=== PATIENT | male | born 1985 | race Hispanic/Latino ===

== ENCOUNTER 2017-08-20 14:58 | Inpatient (IN) | payer OTHER ==
[2017-08-20] MEDS ORDERED: Sodium Chloride 0.9% 1,000 ML IV STA ×2 (15:33→17:14)
[2017-08-20] MEDS ORDERED: DiphenhydrAMINE 50 mg/ml Inj IVP STA (15:33)
[2017-08-20] MEDS ORDERED: Promethazine 25 MG in Sodium Chloride 0.9% 50 ML IVPB ONE (15:45)
[2017-08-20] MEDS: Pantoprazole 40 MG in Sodium Chloride 0.9% 100 ML IVPB SCH (15:45)
[2017-08-20] MEDS ORDERED: DiphenhydrAMINE 50 mg/ml Inj ONE (15:51)
[2017-08-20 16:33] LABS: INR 1.8 (0.9-1.2); PARTIAL THROMBOPLASTIN TIME 29.8 Seconds (25.6-37.1); PROTHROMBIN TIME 19.7 Seconds (9.8-13.1)
[2017-08-20 16:37] LABS: ALB/GLOB RATIO 0.8 (1.0-2.1); ALBUMIN 2.6 g/dL (3.5-5.0); ALT/SGPT 45 U/L (21-72); AST/SGOT 45 U/L (17-59); BLOOD UREA NITROGEN 47 mg/dl (9-20); CALCIUM 8.2 mg/dL (8.4-10.2); GFR AFRICAN-AMERICAN > 60; GFR NON-AFRICAN AMERICAN > 60
[2017-08-20] MEDS ORDERED: Potassium Chloride 20 mEq 100 ML IVPB ONE (16:42)
--- NOTE | 2017-08-20 16:42 | RAD ---
HISTORY: Syncope. COMPARISON: No prior. FINDINGS: LUNGS: No active pulmonary disease. PLEURA: No significant pleural effusion identified, no pneumothorax apparent. CARDIOVASCULAR: No radiographic findings to suggest acute or significant cardiovascular disease. OSSEOUS STRUCTURES: No significant abnormalities. VISUALIZED UPPER ABDOMEN: Normal. OTHER FINDINGS: None. IMPRESSION: No active disease.
[2017-08-20 17:04] LABS: BASO # 0.1 K/uL (0.0-0.2); BASO % 0.2 % (0.0-2.0); LYMPH # 3.4 K/uL (1.0-4.3); LYMPH % 15.9 % (20.0-40.0); MEAN CELL VOLUME 97.3 fl (80.0-94.0); MEAN CORPUSCULAR HEMOGLOBIN 31.2 pg (27.0-31.0); MEAN CORPUSCULAR HGB CONC 32.1 g/dL (33.0-37.0); MEAN PLATELET VOLUME 10.7 fl (7.2-11.7); MONO # 1.7 K/uL (0.0-0.8); MONO % 7.9 % (0.0-10.0); NEUT # 16.3 K/uL (1.8-7.0); NEUT % 75.9 % (50.0-75.0); RBC 1.66 Mil/uL (4.40-5.90); RED CELL DISTRIBUTION WIDTH 14.6 % (11.5-14.5); WHITE BLOOD COUNT 21.6 K/uL (4.8-10.8)
[2017-08-20 17:05] LABS: HEMOGLOBIN 5.2 g/dL (12.0-18.0)
[2017-08-20 17:08] LABS: EOS % 0.1 % (0.0-4.0)
[2017-08-20] MEDS ORDERED: Sodium Chloride 0.9% 2,000 ML IV STA (17:16)
[2017-08-20] MEDS ORDERED: Magnesium Sulfate 2 gm/50 ml 2 GM/50 ML BAG IVPB ONE (17:26)
[2017-08-20] MEDS ORDERED: Potassium Chloride 20 mEq 100 ML ONE (17:28)
[2017-08-20] MEDS ORDERED: Phytonadione 10 mg/ml Inj (Adult) IVPB SCH (17:30)
--- NOTE | 2017-08-20 17:37 | ED PDOC ---
HPI: Abdomen Time Seen by Provider: 08/20/17 15:13 Chief Complaint (Nursing): Syncope Chief Complaint (Provider): Vomiting History Per: Patient History/Exam Limitations: no limitations Onset/Duration Of Symptoms: Days (x1) Current Symptoms Are (Timing): Still Present Quality Of Discomfort: Cramping Associated Symptoms: Nausea, Vomiting (bloody with coffee grounds), Other ( malaise, fatigue, lightheadedness, sweats). denies: Chest Pain Additional Complaint(s): Josue Shrestha is a 31 year old male, with a past medical history of HTN, who presents to the emergency department complaining of intractable vomiting and black colored loose stools onset since last night. Patient states vomiting is bloody with some coffee grounds. Patient reports episodes of black stools once in a while for the last couple of months but not as severe. Patient also reports a crampy abdominal pain for the last x12 hours with multiple fainting episodes at home, malaise, fatigue, lightheadedness, sweats and continued nausea. Patient recently moved here from [place] x3 months ago and reports increase alcohol intake since moving here due to work. He denies any chest pain or other medical complaints. PMD: In [place] Past Medical History Reviewed: Historical Data, Nursing Documentation, Vital Signs Vital Signs: Last Vital Signs Temp 97.7 F 08/23/17 12:00 Pulse 84 08/23/17 14:00 Resp 18 08/23/17 14:00 BP 117/80 08/23/17 14:00 Pulse Ox 95 08/23/17 12:00 - Medical History PMH: HTN - Surgical History Surgical History: No Surg Hx - Family History Family History: States: Hypertension - Social History Current smoker - smoking cessation education provided: Yes Alcohol: Social Drugs: Denies - Home Medications Home Medications: Ambulatory Orders Medication Instructions Recorded Atenolol [Tenormin] 1 tab PO DAILY 08/20/17 Chlorthalidone [Hygroton] 1 tab PO DAILY 08/20/17 Propranolol HCl [Propranolol HCl 1 tab PO PRN PRN 08/20/17 ER] - Allergies Allergies/Adverse Reactions: Allergies Allergy/AdvReac Type Severity Reaction Status Date / Time Sulfa (Sulfonamide Allergy Mild RASH Verified 08/22/17 12:57 Antibiotics) Review of Systems ROS Statement: Except As Marked, All Systems Reviewed And Found Negative Constitutional: Positive for: Sweats, Malaise, Other (fatigue) Cardiovascular: Positive for: Light Headedness. Negative for: Chest Pain Gastrointestinal: Positive for: Vomiting (bloody with some coffee grounds), Abdominal Pain (crampy), Melena Neurological: Positive for: Other (syncope) Physical Exam - Reviewed Nursing Documentation Reviewed: Yes Vital Signs Reviewed: Yes - Physical Exam Appears: Positive for: Uncomfortable, In Acute Distress Head Exam: Positive for: ATRAUMATIC, NORMOCEPHALIC Skin: Positive for: Diaphoresis, Pallor Eye Exam: Positive for: Normal appearance, EOMI, PERRL ENT: Positive for: Other (dry mucous membranes). Negative for: Tonsillar Exudate Neck: Positive for: Painless ROM Cardiovascular/Chest: Positive for: Tachycardia (regular rhythm). Negative for : Murmur Respiratory: Positive for: Normal Breath Sounds. Negative for: Accessory Muscle Use, Respiratory Distress Gastrointestinal/Abdominal: Positive for: Soft. Negative for: Tenderness, Mass , Distended, Guarding, Rebound Back: Positive for: Normal Inspection. Negative for: Decreased ROM Rectal: Positive for: Black Stool, Other (immunohematologist: Jazmín) Extremity: Positive for: Normal ROM (upper and lower extremities). Negative for : Deformity, Swelling Lymphatic: Negative for: Adenopathy Neurologic/Psych: Positive for: Alert, Oriented. Negative for: Motor/Sensory Deficits - Laboratory Results Result Diagrams: 08/23/17 12:02 08/23/17 04:30 - ECG ECG Rhythm: Positive for: Sinus Tachycardia Interpretation Of ECG: No ST elevations or depressions. Prolonged QTc 521 Rate: 113 O2 Sat by Pulse Oximetry: 100 (RA) Pulse Ox Interpretation: Normal - Progress Condition: Improving,but remains with symptoms - Critical Care Total Time (In Min): 45 Documented Critical Care: Time excludes all time spent performint seperately billable procedures Medical Decision Making Medical Decision Making: Initial Impression: GI bleed and syncope, severe anemia Initial Plan: --Packed Cells Leukoreduced --Type and screen --EKG --Alcohol Serum --CMP --Drug screen, urine --Lact acid, plasma --Lipase --Magnesium --Phosphorus --Troponin I --Urine dipstick --CBC w/ differential --PTT --PT --Chest portable [RAD] --Benadryl 25 mg IVP --Potassium Chloride 100 ml IVPB --Sodium Chloride 1,000 ml IV 1,000 mls/hr --Sodium Chloride 2,000 ml IV 2,000 mls/hr --Protonix Inj 40 mg NS 100 ml IVPB --Phenergan Inj 25 mg IVPB --Blood culture --Occult blood, stool --100% O2 --Reevaluation While in ER pt had 2 near syncopal episodes: pt became diaphoretic, confused, attempting to pull lines and get out of bed. Last about 1 minute and then can be redirected. After redirection pt oriented x 3. 1:1 ordered. Prolonged time to dispo due to lab. Labs demonstrated hgb 5.2 Also with INR 1.8 BUN 47 Findings c/w GI bleed and coagulopathy Mg and potassium low, c/w intractable vomiting/dehydration 5p ANURADHA Gonzáles Decontamination Technician. Advises more aggressive hydration ANURADHA Barroso MEdical service. also advises Vit K ANURADHA Mendoza. Advises total of 3u prbcs. ANURADHA pt findings and plan of care. Risk/benefits of transfusion discussed and pt signed consent. Disposition - Clinical Impression Clinical Impression: GI bleed, Anemia Counseled Patient/Family Regarding: Studies Performed, Diagnosis - Disposition Disposition Time: 17:00 Condition: CRITICAL - Pt Status Changed To: Hospital Disposition Of: Inpatient - Admit Certification Admit to Inpatient:: After my assessment, the patient will require hospitalization for at least two midnights. This is because of the severity of symptoms shown, intensity of services needed, and/or the medical risk in this patient being treated as an outpatient. - POA Present On Arrival: None
[2017-08-20] MEDS ORDERED: Phytonadione 10 MG in Sodium Chloride 0.9% 50 ML IV ONE (17:45)
--- NOTE | 2017-08-20 18:01 | CP.PCM.CON ---
History of Present Illness - History of Present Illness History of Present Illness: 31yo M. PMHx HTN. p/w several episodes of syncope, hematemesis, and black tarry stools. In ED found to be severely anemic. States he has been drinking alcohol more than usual. Review of Systems - Review of Systems All systems: reviewed and no additional remarkable complaints except - Gastrointestinal Gastrointestinal: Abdominal Pain, Cramping Past Patient History - Past Social History Smoking Status: Heavy Smoker > 10 Cigarettes Daily - CARDIAC Hx Hypertension: Yes - PSYCHIATRIC Hx Substance Use: No - ANESTHESIA Hx Anesthesia: No Meds Allergies/Adverse Reactions: Allergies Allergy/AdvReac Type Severity Reaction Status Date / Time No Known Allergies Allergy Verified 08/20/17 15:04 - Medications Medications: Current Medications Pantoprazole Sodium 40 mg/ (Sodium Chloride) 100 mls @ 20 mls/hr IVPB Q5H ESTEBAN PRN Reason: 8 MG/HR Last Admin: 08/20/17 15:45 Dose: 20 mls/hr Potassium Chloride (Potassium Chloride 20 Meq/100 Ml) 100 mls @ 50 mls/hr IVPB ONCE ONE Stop: 08/20/17 18:41 Last Admin: 08/20/17 17:05 Dose: 50 mls/hr Sodium Chloride (Sodium Chloride 0.9%) 1,000 mls @ 1,000 mls/hr IV .Q1H STA Stop: 08/20/17 18:13 Sodium Chloride (Sodium Chloride 0.9%) 2,000 mls @ 2,000 mls/hr IV .Q1H STA Stop: 08/20/17 18:15 Magnesium Sulfate (Magnesium Sulfate 2 Gm/50 Ml Water) 2 gm in 50 mls @ 50 mls/ hr IVPB ONCE ONE PRN Reason: 2 GM/HR Stop: 08/20/17 18:25 Phytonadione 10 mg/ Sodium (Chloride) 51 mls @ 102 mls/hr IV ONCE ONE Stop: 08/20/17 18:14 Physical Exam - Head Exam Head Exam: ATRAUMATIC, NORMAL INSPECTION, NORMOCEPHALIC - Eye Exam Eye Exam: EOMI, Normal appearance, PERRL - ENT Exam ENT Exam: Mucous Membranes Moist, Normal Exam - Respiratory Exam Respiratory Exam: Clear to Auscultation Bilateral, NORMAL BREATHING PATTERN - Cardiovascular Exam Cardiovascular Exam: Tachycardia - GI/Abdominal Exam GI & Abdominal Exam: Tenderness (mild) - Extremities Exam Extremities exam: Positive for: normal inspection - Neurological Exam Neurological exam: Alert, CN II-XII Intact, Oriented x3, Reflexes Normal - Psychiatric Exam Psychiatric exam: Normal Affect, Normal Mood Results - Vital Signs Recent Vital Signs: Last Vital Signs Temp 98.4 F 08/20/17 15:26 Pulse 122 H 08/20/17 17:12 Resp 16 08/20/17 17:12 BP 138/85 08/20/17 17:12 Pulse Ox 100 08/20/17 17:37 - Labs Result Diagrams: 08/20/17 16:00 08/20/17 15:40 Labs: Laboratory Results - last 24 hr 08/20/17 08/20/17 08/20/17 15:14 15:40 15:40 WBC RBC Hgb Hct MCV MCH MCHC RDW Plt Count MPV Neut % (Auto) Lymph % (Auto) [place] % (Auto) Eos % (Auto) Baso % (Auto) Neut # (Auto) Lymph # (Auto) [place] # (Auto) Eos # (Auto) Baso # (Auto) PT 19.7 H INR 1.8 H APTT 29.8 Sodium 138 Potassium 3.0 L Chloride 99 Carbon Dioxide 22 Anion Gap 20 BUN 47 H Creatinine 0.7 L Est GFR ( Amer) > 60 Est GFR (Non-Af Amer) > 60 POC Glucose (mg/dL) 250 H Random Glucose 209 H Calcium 8.2 L Phosphorus 3.6 Magnesium 1.5 L Total Bilirubin 0.9 AST 45 ALT 45 Alkaline Phosphatase 60 Troponin I < 0.0120 Total Protein 5.8 L Albumin 2.6 L Globulin 3.2 Albumin/Globulin Ratio 0.8 L Alcohol, Quantitative < 10 Blood Type Blood Type Confirm Antibody Screen Crossmatch BBK History Checked 08/20/17 08/20/17 08/20/17 15:40 16:00 17:00 WBC 21.6 H RBC 1.66 L Hgb 5.2 L* Hct 16.1 L MCV 97.3 H MCH 31.2 H MCHC 32.1 L RDW 14.6 H Plt Count 201 MPV 10.7 Neut % (Auto) 75.9 H Lymph % (Auto) 15.9 L [place] % (Auto) 7.9 Eos % (Auto) 0.1 Baso % (Auto) 0.2 Neut # (Auto) 16.3 H Lymph # (Auto) 3.4 [place] # (Auto) 1.7 H Eos # (Auto) 0.0 Baso # (Auto) 0.1 PT INR APTT Sodium Potassium Chloride Carbon Dioxide Anion Gap BUN Creatinine Est GFR ( Amer) Est GFR (Non-Af Amer) POC Glucose (mg/dL) Random Glucose Calcium Phosphorus Magnesium Total Bilirubin AST ALT Alkaline Phosphatase Troponin I Total Protein Albumin Globulin Albumin/Globulin Ratio Alcohol, Quantitative Blood Type B POSITIVE Blood Type Confirm B POSITIVE Antibody Screen Negative Crossmatch See Detail BBK History Checked No verified bt Assessment & Plan (1) GI bleed Assessment and Plan: 31yo M. PMHx HTN. p/w several episodes of syncope, hematemesis, and black tarry stools. p/w suspected upper GI bleed. Neuro: alert and oriented x 3. Will need to monitor for ETOH withdrawal symptoms, level of usage unknown. Pulm: no acute issues, breathing spontaneously on room air. CV: relatively hypotensive. Hem: blood loss anemia, transfusing 2 units PRBC's Renal: no acute issues, will monitor Endo: no acute issues GI: NPO. Patient will most likely need and EGD, r/u ulcer or alcoholic gastritis. GI consulted ID: no acute issues DVT proph - SCD's, no a/c with current bleed GI proph - protonix gtt Code status - full code Critical Care Time spent 35 minutes Multi-disciplinary rounds were performed with house staff, nursing, speech therapy, respiratory therapy, pharmacy and nutrition with integrated input from the primary team/attending and other consulting services. The documented time is cumulative and includes review of patient data/exams/labs/chart review and examination of the patient on rounds and throughout the day; time is exclusive of any procedures or teaching time. Status: Acute
--- NOTE | 2017-08-20 18:47 | CP.PCM.HP ---
Past Patient History - Past Social History Alcohol: Social Drugs: Denies - CARDIAC Hx Hypertension: Yes - PSYCHIATRIC Hx Substance Use: No - ANESTHESIA Hx Anesthesia: No Meds Allergies/Adverse Reactions: Allergies Allergy/AdvReac Type Severity Reaction Status Date / Time No Known Allergies Allergy Verified 08/20/17 15:04 Results - Vital Signs Recent Vital Signs: Last Vital Signs Temp 98.0 F 08/20/17 18:15 Pulse 113 H 08/20/17 18:45 Resp 16 08/20/17 18:15 BP 123/69 08/20/17 18:15 Pulse Ox 100 08/20/17 18:45 - Labs Result Diagrams: 08/20/17 16:00 08/20/17 15:40 Labs: Laboratory Results - last 24 hr 08/20/17 08/20/17 08/20/17 15:14 15:40 15:40 WBC RBC Hgb Hct MCV MCH MCHC RDW Plt Count MPV Neut % (Auto) Lymph % (Auto) [place] % (Auto) Eos % (Auto) Baso % (Auto) Neut # (Auto) Lymph # (Auto) [place] # (Auto) Eos # (Auto) Baso # (Auto) PT 19.7 H INR 1.8 H APTT 29.8 Sodium 138 Potassium 3.0 L Chloride 99 Carbon Dioxide 22 Anion Gap 20 BUN 47 H Creatinine 0.7 L Est GFR ( Amer) > 60 Est GFR (Non-Af Amer) > 60 POC Glucose (mg/dL) 250 H Random Glucose 209 H Calcium 8.2 L Phosphorus 3.6 Magnesium 1.5 L Total Bilirubin 0.9 AST 45 ALT 45 Alkaline Phosphatase 60 Troponin I < 0.0120 Total Protein 5.8 L Albumin 2.6 L Globulin 3.2 Albumin/Globulin Ratio 0.8 L Alcohol, Quantitative < 10 Blood Type Blood Type Confirm Antibody Screen Crossmatch BBK History Checked 08/20/17 08/20/17 08/20/17 15:40 16:00 17:00 WBC 21.6 H RBC 1.66 L Hgb 5.2 L* Hct 16.1 L MCV 97.3 H MCH 31.2 H MCHC 32.1 L RDW 14.6 H Plt Count 201 MPV 10.7 Neut % (Auto) 75.9 H Lymph % (Auto) 15.9 L [place] % (Auto) 7.9 Eos % (Auto) 0.1 Baso % (Auto) 0.2 Neut # (Auto) 16.3 H Lymph # (Auto) 3.4 [place] # (Auto) 1.7 H Eos # (Auto) 0.0 Baso # (Auto) 0.1 PT INR APTT Sodium Potassium Chloride Carbon Dioxide Anion Gap BUN Creatinine Est GFR ( Amer) Est GFR (Non-Af Amer) POC Glucose (mg/dL) Random Glucose Calcium Phosphorus Magnesium Total Bilirubin AST ALT Alkaline Phosphatase Troponin I Total Protein Albumin Globulin Albumin/Globulin Ratio Alcohol, Quantitative Blood Type B POSITIVE Blood Type Confirm B POSITIVE Antibody Screen Negative Crossmatch See Detail BBK History Checked No verified bt
[2017-08-20] MEDS ORDERED: Acetaminophen 650mg/20.3ml solution UD PO ONE (23:49)
[2017-08-21] MEDS ORDERED: Multivitamin (MVI) 10 ML, Thiamine 100 MG, Folic Acid 1 MG in Sodium Chloride 0.9% 1,00... IV ONE ×2 (03:18→03:23)
[2017-08-21 07:13] LABS: HEMOGLOBIN 6.9 g/dL (12.0-18.0); MEAN CORPUSCULAR HEMOGLOBIN 30.9 pg (27.0-31.0); MEAN CORPUSCULAR HGB CONC 33.6 g/dL (33.0-37.0); RBC 2.23 Mil/uL (4.40-5.90); RED CELL DISTRIBUTION WIDTH 16.9 % (11.5-14.5); WHITE BLOOD COUNT 17.3 K/uL (4.8-10.8)
[2017-08-21 07:27] LABS: INR 1.5 (0.9-1.2); PARTIAL THROMBOPLASTIN TIME 30.1 Seconds (25.6-37.1); PROTHROMBIN TIME 16.8 Seconds (9.8-13.1)
[2017-08-21 07:33] LABS: BLOOD UREA NITROGEN 38 mg/dl (9-20); CALCIUM 7.7 mg/dL (8.4-10.2); GFR AFRICAN-AMERICAN > 60; GFR NON-AFRICAN AMERICAN > 60
--- NOTE | 2017-08-21 08:02 | CP.PCM.CON ---
History of Present Illness - History of Present Illness History of Present Illness: PGY5 GI Fellow Consult Note Patient is a 31yo male with PMHx significant for HTN who presented to the ED with complaint of nausea, vomiting and dark stool for one day. Currently, the patient is sedated and unable to remain awake long enough to provide any history. He has one to one nursing as he became very agitated overnight and became a harm to himself. Per the EMR, patient complained of sudden onset nausea , vomiting, dark stool and cramping abdominal pain one day prior to admission. On further questioning it seemed patient had been having intermittent episodes of melena for several weeks and coffee ground emesis just prior to arrival. In the days leading up to admission, patient had worsening fatigue, dizziness and episodes of syncope. On admission, blood work revealed severe anemia (HGB 5.2) with coagulopathy (INR 1.8). He admitted to heavy alcohol use since moving to [place] from [place] 3 months ago. He was admitted to ICU where he has received 3 units of PRBCs and medication for alcohol withdrawal. 12 system ROS limited given altered mentation PMHx: HTN PSHx: Unable to assess at this time FHx: Unable to assess at this time Social: Unable to assess at this time - known heavy EtOH use Endo: Unable to assess at this time Past Patient History - Past Medical History & Family History Past Medical History?: Yes - Past Social History Smoking Status: Current Some Days Smoker - CARDIAC Hx Hypertension: Yes - PULMONARY Hx Respiratory Disorders: No - NEUROLOGICAL Hx Neurological Disorder: No - HEENT Hx HEENT Problems: No - RENAL Hx Chronic Kidney Disease: No - ENDOCRINE/METABOLIC Hx Endocrine Disorders: No - HEMATOLOGICAL/ONCOLOGICAL Hx Blood Disorders: No Hx AIDS: No Hx Human Immunodeficiency Virus (HIV): No - INTEGUMENTARY Hx Dermatological Problems: No - MUSCULOSKELETAL/RHEUMATOLOGICAL Hx Musculoskeletal Disorders: No Hx Falls: Yes (pt fell in the er) - GENITOURINARY/GYNECOLOGICAL Hx Genitourinary Disorders: No - PSYCHIATRIC Hx Psychophysiologic Disorder: No Hx Substance Use: No - ANESTHESIA Hx Anesthesia: No Meds Allergies/Adverse Reactions: Allergies Allergy/AdvReac Type Severity Reaction Status Date / Time No Known Allergies Allergy Verified 08/20/17 15:04 - Medications Medications: Current Medications Pantoprazole Sodium 40 mg/ (Sodium Chloride) 100 mls @ 20 mls/hr IVPB Q5H REPLACED BY [facility] PRN Reason: 8 MG/HR Last Admin: 08/20/17 15:45 Dose: 20 mls/hr Multivitamins/Vitamin C 10 ml/Thiamine HCl 100 mg/ Folic Acid 1 mg/ Sodium Chloride 1,011.2 mls @ 100 mls/hr IV .Q10H7M ONE Stop: 08/21/17 13:24 Last Admin: 08/21/17 04:13 Dose: 100 mls/hr Lorazepam (Ativan) 1 mg IVP Q6 ESTEBAN Last Admin: 08/21/17 03:31 Dose: 1 mg Lorazepam (Ativan) 2 mg IVP Q3 PRN PRN Reason: Agitation Physical Exam - Constitutional Appears: Agitated, Confused - Eye Exam Eye Exam: PERRL - ENT Exam ENT Exam: Mucous Membranes Dry - Respiratory Exam Respiratory Exam: Clear to Auscultation Bilateral. absent: Rales, Rhonchi, Wheezes - Cardiovascular Exam Cardiovascular Exam: Tachycardia, REGULAR RHYTHM, +S1, +S2 - GI/Abdominal Exam GI & Abdominal Exam: Normal Bowel Sounds, Soft. absent: Distended, Firm, Guarding, Organomegaly, Rigid, Tenderness - Extremities Exam Extremities exam: Positive for: normal inspection. Negative for: pedal edema - Neurological Exam Neurological exam: Altered - Psychiatric Exam Psychiatric exam: Agitated, Anxious - Skin Skin Exam: Dry, Warm Additional comments: spider angiomas on chest wall Results - Vital Signs Recent Vital Signs: Last Vital Signs Temp 98.6 F 08/21/17 01:08 Pulse 116 H 08/21/17 01:00 Resp 19 08/21/17 01:00 BP 116/89 08/21/17 01:00 Pulse Ox 100 08/21/17 01:00 - Labs Result Diagrams: 08/21/17 06:20 08/21/17 06:20 Labs: Laboratory Results - last 24 hr 08/20/17 08/20/17 08/20/17 15:14 15:40 15:40 WBC RBC Hgb Hct MCV MCH MCHC RDW Plt Count MPV Neut % (Auto) Lymph % (Auto) [place] % (Auto) Eos % (Auto) Baso % (Auto) Neut # (Auto) Lymph # (Auto) [place] # (Auto) Eos # (Auto) Baso # (Auto) PT 19.7 H INR 1.8 H APTT 29.8 Sodium 138 Potassium 3.0 L Chloride 99 Carbon Dioxide 22 Anion Gap 20 BUN 47 H Creatinine 0.7 L Est GFR ( Amer) > 60 Est GFR (Non-Af Amer) > 60 POC Glucose (mg/dL) 250 H Random Glucose 209 H Calcium 8.2 L Phosphorus 3.6 Magnesium 1.5 L Total Bilirubin 0.9 AST 45 ALT 45 Alkaline Phosphatase 60 Troponin I < 0.0120 Total Protein 5.8 L Albumin 2.6 L Globulin 3.2 Albumin/Globulin Ratio 0.8 L Alcohol, Quantitative < 10 Blood Type Blood Type Confirm Antibody Screen Crossmatch BBK History Checked 08/20/17 08/20/17 08/20/17 15:40 16:00 17:00 WBC 21.6 H RBC 1.66 L Hgb 5.2 L* Hct 16.1 L MCV 97.3 H MCH 31.2 H MCHC 32.1 L RDW 14.6 H Plt Count 201 MPV 10.7 Neut % (Auto) 75.9 H Lymph % (Auto) 15.9 L [place] % (Auto) 7.9 Eos % (Auto) 0.1 Baso % (Auto) 0.2 Neut # (Auto) 16.3 H Lymph # (Auto) 3.4 [place] # (Auto) 1.7 H Eos # (Auto) 0.0 Baso # (Auto) 0.1 PT INR APTT Sodium Potassium Chloride Carbon Dioxide Anion Gap BUN Creatinine Est GFR ( Amer) Est GFR (Non-Af Amer) POC Glucose (mg/dL) Random Glucose Calcium Phosphorus Magnesium Total Bilirubin AST ALT Alkaline Phosphatase Troponin I Total Protein Albumin Globulin Albumin/Globulin Ratio Alcohol, Quantitative Blood Type B POSITIVE Blood Type Confirm B POSITIVE Antibody Screen Negative Crossmatch See Detail BBK History Checked No verified bt 08/21/17 08/21/17 08/21/17 06:20 06:20 06:20 WBC 17.3 H RBC 2.23 L Hgb 6.9 L Hct 20.5 L MCV 92.0 D MCH 30.9 MCHC 33.6 RDW 16.9 H Plt Count 138 MPV Neut % (Auto) Lymph % (Auto) [place] % (Auto) Eos % (Auto) Baso % (Auto) Neut # (Auto) Lymph # (Auto) [place] # (Auto) Eos # (Auto) Baso # (Auto) PT 16.8 H INR 1.5 H APTT 30.1 Sodium 142 Potassium 2.8 L Chloride 105 Carbon Dioxide 24 Anion Gap 16 BUN 38 H Creatinine 0.7 L Est GFR ( Amer) > 60 Est GFR (Non-Af Amer) > 60 POC Glucose (mg/dL) Random Glucose 139 H Calcium 7.7 L Phosphorus Magnesium 1.9 Total Bilirubin AST ALT Alkaline Phosphatase Troponin I Total Protein Albumin Globulin Albumin/Globulin Ratio Alcohol, Quantitative Blood Type Blood Type Confirm Antibody Screen Crossmatch BBK History Checked Assessment & Plan - Assessment and Plan (Free Text) Assessment: Patient is a 31yo male with PMHx significant for HTN who presented to the ED with complaint of nausea, vomiting and dark stool for one day. -Acute blood loss anemia -EtOH abuse/withdrawal -Coagulopathy Plan: -Suspect chronic liver disease given clinical picture, spider angiomas/ abdominal protuberance/coagulopathy/hypoalbuminemia -Check U/S abdomen - R/O cirrhosis -Check hepatitis panel -S/P 3 units PRBCs; monitor CBC Q8H - transfusion support as needed -Protonix gtt -NPO -Plan for EGD tomorrow -EtOH withdrawal protocol -1:1 nursing assistance - Date & Time Date: 08/21/17 Time: 07:00
[2017-08-21] MEDS ORDERED: Potassium Chloride 20 mEq ER Tab PO ONE (08:48)
[2017-08-21] MEDS: Pantoprazole 40 MG in Sodium Chloride 0.9% 100 ML IVPB SCH ×3 (08:59→20:52)
[2017-08-21] MEDS ORDERED: Multivitamin (MVI) 10 ML, Folic Acid 1 MG, Thiamine 100 MG in Dextrose 5%/0.45% NS 1,00... IV ONE (08:59)
[2017-08-21] MEDS: Potassium Chloride 20 mEq 100 ML IVPB SCH ×4 (11:51→20:46)
--- NOTE | 2017-08-21 12:40 | CP.CCUPN ---
CCU Subjective - Physician Review Events Since Last Encounter (Free Text): 08/21/17 11:59 sedated on Ativan. CCU Objective - Vital Signs / Intake & Output Vital Signs (Last 4 hours): Vital Signs Temp Pulse Resp BP Pulse Ox 08/21/17 08:00 98.0 F 128 H 10 L 157/114 H 100 Intake and Output (Last 8hrs): Intake & Output 08/20/17 08/21/17 08/21/17 22:59 06:59 14:59 Intake Total 450 1500 Output Total 450 1500 Balance 0 0 Weight 235 lb Intake: IV 300 900 Intake, Piggyback 50 Oral 100 Blood Product 600 Output: Urine 450 1500 Urine, Voided 450 1500 - Physical Exam Head: Positive for: Atraumatic, Normocephalic Pupils: Positive for: PERRL Extroacular Muscles: Positive for: EOMI Conjunctiva: Positive for: Normal Mouth: Positive for: Moist Mucous Membranes Respiratory/Chest: Positive for: Clear to Auscultation, Good Air Exchange Cardiovascular: Positive for: Regular Rate and Rhythm Abdomen: Positive for: Normal Bowel Sounds. Negative for: Tenderness, Distention Psychiatric: Positive for: Other (sedated) - Medications Active Medications: Active Medications Generic Name Dose Route Start Last Admin Trade Name Freq PRN Reason Stop Dose Admin Pantoprazole Sodium 40 mg/ 100 mls @ 20 mls/hr 08/20/17 15:45 08/21/17 08:59 Sodium Chloride IVPB 20 mls/hr Q5H ESTEBAN Administration 8 MG/HR Multivitamins/Vitamin C 10 ml/ 1,011.2 mls @ 100 mls/hr 08/21/17 03:23 04:13 Thiamine HCl 100 mg/ Folic IV 08/21/17 13:24 100 mls/hr Acid 1 mg/ Sodium Chloride .Q10H7M ONE Administration Multivitamins/Vitamin C 10 ml/ 1,011.2 mls @ 100 mls/hr 08/21/17 08:59 Folic Acid 1 mg/ Thiamine HCl IV 08/21/17 19:05 100 mg/ Dextrose/Sodium .Q10H7M ONE Chloride Potassium Chloride 100 mls @ 50 mls/hr 08/21/17 12:00 08/21/17 11:51 Potassium Chloride 20 Meq/100 Ml IVPB 08/21/17 15:59 50 mls/hr Q2 ESTEBAN Administration Lorazepam 1 mg 08/21/17 08:59 08/21/17 11:47 Ativan IVP 1 mg Q6H PRN Administration Symptoms of alcohol withdrawl - Patient Studies Lab Studies: Lab Studies 08/21/17 08/21/17 08/21/17 Range/Units 06:20 06:20 06:20 WBC 17.3 H (4.8-10.8) K/uL RBC 2.23 L (4.40-5.90) Mil/uL Hgb 6.9 L (12.0-18.0) g/dL Hct 20.5 L (35.0-51.0) % MCV 92.0 D (80.0-94.0) fl MCH 30.9 (27.0-31.0) pg MCHC 33.6 (33.0-37.0) g/dL RDW 16.9 H (11.5-14.5) % Plt Count 138 (130-400) K/uL MPV (7.2-11.7) fl Neut % (Auto) (50.0-75.0) % Lymph % (Auto) (20.0-40.0) % [place] % (Auto) (0.0-10.0) % Eos % (Auto) (0.0-4.0) % Baso % (Auto) (0.0-2.0) % Neut # (Auto) (1.8-7.0) K/uL Lymph # (Auto) (1.0-4.3) K/uL [place] # (Auto) (0.0-0.8) K/uL Eos # (Auto) (0.0-0.7) K/uL Baso # (Auto) (0.0-0.2) K/uL PT 16.8 H (9.8-13.1) Seconds INR 1.5 H (0.9-1.2) APTT 30.1 (25.6-37.1) Seconds Sodium 142 (132-148) mmol/l Potassium 2.8 L (3.6-5.0) MMOL/L Chloride 105 (98-107) mmol/L Carbon Dioxide 24 (22-30) mmol/L Anion Gap 16 (10-20) BUN 38 H (9-20) mg/dl Creatinine 0.7 L (0.8-1.5) mg/dl Est GFR ( Amer) > 60 Est GFR (Non-Af Amer) > 60 POC Glucose (mg/dL) (65-110) mg/dL Random Glucose 139 H (75-110) mg/dL Calcium 7.7 L (8.4-10.2) mg/dL Phosphorus (2.5-4.5) mg/dl Magnesium 1.9 (1.6-2.3) MG/DL Total Bilirubin (0.2-1.3) mg/dl AST (17-59) U/L ALT (21-72) U/L Alkaline Phosphatase (38-126) U/L Troponin I (0.00-0.120) ng/mL Total Protein (6.3-8.2) G/DL Albumin (3.5-5.0) g/dL Globulin (2.2-3.9) gm/dL Albumin/Globulin Ratio (1.0-2.1) Alcohol, Quantitative (0-10) mg/dl Blood Type Blood Type Confirm Antibody Screen Crossmatch BBK History Checked 08/20/17 08/20/17 08/20/17 Range/Units 17:00 16:00 15:40 WBC 21.6 H (4.8-10.8) K/uL RBC 1.66 L (4.40-5.90) Mil/uL Hgb 5.2 L* (12.0-18.0) g/dL Hct 16.1 L (35.0-51.0) % MCV 97.3 H (80.0-94.0) fl MCH 31.2 H (27.0-31.0) pg MCHC 32.1 L (33.0-37.0) g/dL RDW 14.6 H (11.5-14.5) % Plt Count 201 (130-400) K/uL MPV 10.7 (7.2-11.7) fl Neut % (Auto) 75.9 H (50.0-75.0) % Lymph % (Auto) 15.9 L (20.0-40.0) % [place] % (Auto) 7.9 (0.0-10.0) % Eos % (Auto) 0.1 (0.0-4.0) % Baso % (Auto) 0.2 (0.0-2.0) % Neut # (Auto) 16.3 H (1.8-7.0) K/uL Lymph # (Auto) 3.4 (1.0-4.3) K/uL [place] # (Auto) 1.7 H (0.0-0.8) K/uL Eos # (Auto) 0.0 (0.0-0.7) K/uL Baso # (Auto) 0.1 (0.0-0.2) K/uL PT (9.8-13.1) Seconds INR (0.9-1.2) APTT (25.6-37.1) Seconds Sodium (132-148) mmol/l Potassium (3.6-5.0) MMOL/L Chloride (98-107) mmol/L Carbon Dioxide (22-30) mmol/L Anion Gap (10-20) BUN (9-20) mg/dl Creatinine (0.8-1.5) mg/dl Est GFR ( Amer) Est GFR (Non-Af Amer) POC Glucose (mg/dL) (65-110) mg/dL Random Glucose (75-110) mg/dL Calcium (8.4-10.2) mg/dL Phosphorus (2.5-4.5) mg/dl Magnesium (1.6-2.3) MG/DL Total Bilirubin (0.2-1.3) mg/dl AST (17-59) U/L ALT (21-72) U/L Alkaline Phosphatase (38-126) U/L Troponin I (0.00-0.120) ng/mL Total Protein (6.3-8.2) G/DL Albumin (3.5-5.0) g/dL Globulin (2.2-3.9) gm/dL Albumin/Globulin Ratio (1.0-2.1) Alcohol, Quantitative (0-10) mg/dl Blood Type B POSITIVE Blood Type Confirm B POSITIVE Antibody Screen Negative Crossmatch See Detail BBK History Checked No verified bt 08/20/17 08/20/17 08/20/17 Range/Units 15:40 15:40 15:14 WBC (4.8-10.8) K/uL RBC (4.40-5.90) Mil/uL Hgb (12.0-18.0) g/dL Hct (35.0-51.0) % MCV (80.0-94.0) fl MCH (27.0-31.0) pg MCHC (33.0-37.0) g/dL RDW (11.5-14.5) % Plt Count (130-400) K/uL MPV (7.2-11.7) fl Neut % (Auto) (50.0-75.0) % Lymph % (Auto) (20.0-40.0) % [place] % (Auto) (0.0-10.0) % Eos % (Auto) (0.0-4.0) % Baso % (Auto) (0.0-2.0) % Neut # (Auto) (1.8-7.0) K/uL Lymph # (Auto) (1.0-4.3) K/uL [place] # (Auto) (0.0-0.8) K/uL Eos # (Auto) (0.0-0.7) K/uL Baso # (Auto) (0.0-0.2) K/uL PT 19.7 H (9.8-13.1) Seconds INR 1.8 H (0.9-1.2) APTT 29.8 (25.6-37.1) Seconds Sodium 138 (132-148) mmol/l Potassium 3.0 L (3.6-5.0) MMOL/L Chloride 99 (98-107) mmol/L Carbon Dioxide 22 (22-30) mmol/L Anion Gap 20 (10-20) BUN 47 H (9-20) mg/dl Creatinine 0.7 L (0.8-1.5) mg/dl Est GFR ( Amer) > 60 Est GFR (Non-Af Amer) > 60 POC Glucose (mg/dL) 250 H (65-110) mg/dL Random Glucose 209 H (75-110) mg/dL Calcium 8.2 L (8.4-10.2) mg/dL Phosphorus 3.6 (2.5-4.5) mg/dl Magnesium 1.5 L (1.6-2.3) MG/DL Total Bilirubin 0.9 (0.2-1.3) mg/dl AST 45 (17-59) U/L ALT 45 (21-72) U/L Alkaline Phosphatase 60 (38-126) U/L Troponin I < 0.0120 (0.00-0.120) ng/mL Total Protein 5.8 L (6.3-8.2) G/DL Albumin 2.6 L (3.5-5.0) g/dL Globulin 3.2 (2.2-3.9) gm/dL Albumin/Globulin Ratio 0.8 L (1.0-2.1) Alcohol, Quantitative < 10 (0-10) mg/dl Blood Type Blood Type Confirm Antibody Screen Crossmatch BBK History Checked Laboratory Results - last 24 hr 08/20/17 08/20/17 08/20/17 15:14 15:40 15:40 WBC RBC Hgb Hct MCV MCH MCHC RDW Plt Count MPV Neut % (Auto) Lymph % (Auto) [place] % (Auto) Eos % (Auto) Baso % (Auto) Neut # (Auto) Lymph # (Auto) [place] # (Auto) Eos # (Auto) Baso # (Auto) PT 19.7 H INR 1.8 H APTT 29.8 Sodium 138 Potassium 3.0 L Chloride 99 Carbon Dioxide 22 Anion Gap 20 BUN 47 H Creatinine 0.7 L Est GFR ( Amer) > 60 Est GFR (Non-Af Amer) > 60 POC Glucose (mg/dL) 250 H Random Glucose 209 H Calcium 8.2 L Phosphorus 3.6 Magnesium 1.5 L Total Bilirubin 0.9 AST 45 ALT 45 Alkaline Phosphatase 60 Troponin I < 0.0120 Total Protein 5.8 L Albumin 2.6 L Globulin 3.2 Albumin/Globulin Ratio 0.8 L Alcohol, Quantitative < 10 Blood Type Blood Type Confirm Antibody Screen Crossmatch BBK History Checked 08/20/17 08/20/17 08/20/17 15:40 16:00 17:00 WBC 21.6 H RBC 1.66 L Hgb 5.2 L* Hct 16.1 L MCV 97.3 H MCH 31.2 H MCHC 32.1 L RDW 14.6 H Plt Count 201 MPV 10.7 Neut % (Auto) 75.9 H Lymph % (Auto) 15.9 L [place] % (Auto) 7.9 Eos % (Auto) 0.1 Baso % (Auto) 0.2 Neut # (Auto) 16.3 H Lymph # (Auto) 3.4 [place] # (Auto) 1.7 H Eos # (Auto) 0.0 Baso # (Auto) 0.1 PT INR APTT Sodium Potassium Chloride Carbon Dioxide Anion Gap BUN Creatinine Est GFR ( Amer) Est GFR (Non-Af Amer) POC Glucose (mg/dL) Random Glucose Calcium Phosphorus Magnesium Total Bilirubin AST ALT Alkaline Phosphatase Troponin I Total Protein Albumin Globulin Albumin/Globulin Ratio Alcohol, Quantitative Blood Type B POSITIVE Blood Type Confirm B POSITIVE Antibody Screen Negative Crossmatch See Detail BBK History Checked No verified bt 08/21/17 08/21/17 08/21/17 06:20 06:20 06:20 WBC 17.3 H RBC 2.23 L Hgb 6.9 L Hct 20.5 L MCV 92.0 D MCH 30.9 MCHC 33.6 RDW 16.9 H Plt Count 138 MPV Neut % (Auto) Lymph % (Auto) [place] % (Auto) Eos % (Auto) Baso % (Auto) Neut # (Auto) Lymph # (Auto) [place] # (Auto) Eos # (Auto) Baso # (Auto) PT 16.8 H INR 1.5 H APTT 30.1 Sodium 142 Potassium 2.8 L Chloride 105 Carbon Dioxide 24 Anion Gap 16 BUN 38 H Creatinine 0.7 L Est GFR ( Amer) > 60 Est GFR (Non-Af Amer) > 60 POC Glucose (mg/dL) Random Glucose 139 H Calcium 7.7 L Phosphorus Magnesium 1.9 Total Bilirubin AST ALT Alkaline Phosphatase Troponin I Total Protein Albumin Globulin Albumin/Globulin Ratio Alcohol, Quantitative Blood Type Blood Type Confirm Antibody Screen Crossmatch BBK History Checked EKG/Cardiology Studies: Cardiology / EKG Studies 08/20/17 15:31 ELECTROCARDIOGRAM Stat Comment: Mode Of Transportation: Reason For Exam: syncope Fingerstick Blood Sugar Results: 250 Review of Systems - Review of Systems Systems not reviewed;Unavailable: Other (sedated) Critical Care Progress Note - Nutrition Nutrition: Nutrition Category Date Time Status NPO Diet [DIET] Diets 08/21/17 Lunch Ordered Assessment/Plan (1) GI bleed Assessment and plan: 31yo M. PMHx HTN. p/w several episodes of syncope, hematemesis, and black tarry stools. p/w suspected upper GI bleed. Neuro: alert and oriented x 3. Started showing withdrawal symptoms overnight, now on CIWA protocol with Ativan IV prn q4h. Pulm: no acute issues, breathing spontaneously on room air. CV: blood pressure has stabilized. Hem: blood loss anemia, transfusing 2 more units today with poor rise in h/h. most likely still having internal slow bleed. Renal: no acute issues, will monitor. banana bag@100 with alternating NS@100. Endo: no acute issues GI: NPO. r/o ulcer or bleeding alcoholic gastritis. GI consulted - will perform EGD tomorrow. ID: no acute issues DVT proph - SCD's, no a/c with current bleed GI proph - protonix gtt Code status - full code Critical Care Time 35 minutes. Multi-disciplinary rounds were performed with house staff, nursing, speech therapy, respiratory therapy, pharmacy and nutrition with integrated input from the primary team/attending and other consulting services. The documented time is cumulative and includes review of patient data/exams/labs/chart review and examination of the patient on rounds and throughout the day; time is exclusive of any procedures or teaching time. Current Visit: Yes Status: Acute
--- NOTE | 2017-08-21 12:47 | US ---
HISTORY: eval liver parenchyma, suspect cirrhosis COMPARISON: None. TECHNIQUE: Sonographic evaluation of the abdomen. FINDINGS: LIVER: Measures 21.7 cm. Variable echo characteristics of the liver. Nodular contour to the liver. Hepato pedal blood flow was documented. . No mass. No intrahepatic bile duct dilatation. GALLBLADDER: No gallstones. Gallbladder wall edema, trace pericholecystic fluid. Negative sonographic Heredia's sign COMMON BILE DUCT: Measures 5.5 mm. No stones. No dilatation. PANCREAS: Unremarkable as visualized. No mass. No ductal dilatation. RIGHT KIDNEY: Measures 5.9 x 13.5cm. Normal echogenicity. No calculus, mass, or hydronephrosis. LEFT KIDNEY: Measures 5.7 x 14.5cm. Normal echogenicity. No calculus, mass, or hydronephrosis. SPLEEN: Splenomegaly. Orthogonal measurements 4.4 x 5.2 x 16.8 cm. AORTA: No aneurysmal dilatation. IVC: Unremarkable. OTHER FINDINGS: None. IMPRESSION: Cirrhotic appearing liver. Hepatomegaly without focal abnormality. Splenomegaly. Gallbladder wall edema/ trace pericholecystic fluid.
[2017-08-21] MEDS ORDERED: Sodium Chloride 0.9% 1,000 ML IV SCH (13:00)
[2017-08-21 16:54] LABS: HEPATITIS B SURFACE AG Negative (NEGATIVE)
[2017-08-21 17:00] LABS: HEPATITIS A IGM NEGATIVE (NEGATIVE); HEPATITIS B CORE AB NEGATIVE (NEGATIVE)
[2017-08-21 17:12] LABS: HEPATITIS C ANTIBODY NEGATIVE (NEGATIVE)
[2017-08-21 20:50] LABS: HEMOGLOBIN 6.9 g/dL (12.0-18.0); MEAN CELL VOLUME 91.8 fl (80.0-94.0); MEAN CORPUSCULAR HEMOGLOBIN 30.9 pg (27.0-31.0); MEAN CORPUSCULAR HGB CONC 33.7 g/dL (33.0-37.0); RBC 2.23 Mil/uL (4.40-5.90); RED CELL DISTRIBUTION WIDTH 17.6 % (11.5-14.5); WHITE BLOOD COUNT 13.2 K/uL (4.8-10.8)
[2017-08-21 21:01] LABS: ALB/GLOB RATIO 0.8 (1.0-2.1); ALBUMIN 2.6 g/dL (3.5-5.0); ALT/SGPT 53 U/L (21-72); AST/SGOT 80 U/L (17-59); BLOOD UREA NITROGEN 29 mg/dl (9-20); CALCIUM 7.6 mg/dL (8.4-10.2); GFR AFRICAN-AMERICAN > 60; GFR NON-AFRICAN AMERICAN > 60
--- NOTE | 2017-08-21 22:44 | CP.PCM.PN ---
Subjective - Date & Time of Evaluation Date of Evaluation: 08/21/17 Time of Evaluation: 16:15 Objective - Vital Signs/Intake and Output Vital Signs (last 24 hours): Temp Pulse Resp BP Pulse Ox 98.4 F 106 H 14 109/56 L 98 08/21/17 16:00 08/21/17 18:00 08/21/17 18:00 08/21/17 18:00 08/21/17 18:00 - Medications Medications: Current Medications Pantoprazole Sodium 40 mg/ (Sodium Chloride) 100 mls @ 20 mls/hr IVPB Q5H ESTEBAN PRN Reason: 8 MG/HR Last Admin: 08/21/17 20:52 Dose: 20 mls/hr Sodium Chloride (Sodium Chloride 0.9%) 1,000 mls @ 100 mls/hr IV .Q10H ESTEBAN Stop: 08/22/17 12:54 Multivitamins/Vitamin C 10 ml/Folic Acid 1 mg/ Thiamine HCl 100 mg/ Dextrose/ Sodium Chloride 1,011.2 mls @ 100 mls/hr IV .Q10H7M ONE Stop: 08/22/17 19:05 Lorazepam (Ativan) 1 mg IVP Q4H PRN PRN Reason: Symptoms of alcohol withdrawl Last Admin: 08/21/17 21:48 Dose: 1 mg - Labs Labs: 08/21/17 20:21 08/21/17 20:21 PT 16.8 Seconds (9.8-13.1) H 08/21/17 06:20 INR 1.5 (0.9-1.2) H 08/21/17 06:20 APTT 30.1 Seconds (25.6-37.1) 08/21/17 06:20
[2017-08-22] MEDS: Pantoprazole 40 MG in Sodium Chloride 0.9% 100 ML IVPB SCH (01:59)
[2017-08-22 05:42] LABS: HEMOGLOBIN 8.4 g/dL (12.0-18.0); MEAN CELL VOLUME 90.9 fl (80.0-94.0); MEAN CORPUSCULAR HEMOGLOBIN 30.8 pg (27.0-31.0); MEAN CORPUSCULAR HGB CONC 33.8 g/dL (33.0-37.0); RBC 2.72 Mil/uL (4.40-5.90); RED CELL DISTRIBUTION WIDTH 16.7 % (11.5-14.5); WHITE BLOOD COUNT 11.8 K/uL (4.8-10.8)
[2017-08-22 05:49] LABS: ALB/GLOB RATIO 0.8 (1.0-2.1); ALBUMIN 2.7 g/dL (3.5-5.0); ALT/SGPT 59 U/L (21-72); AST/SGOT 84 U/L (17-59); BLOOD UREA NITROGEN 24 mg/dl (9-20); CALCIUM 7.8 mg/dL (8.4-10.2); GFR AFRICAN-AMERICAN > 60; GFR NON-AFRICAN AMERICAN > 60
[2017-08-22 06:13] LABS: INR 1.3 (0.9-1.2)
[2017-08-22] MEDS: Potassium Chloride 20 mEq 100 ML IVPB SCH ×2 (07:24→09:34)
[2017-08-22] MEDS ORDERED: Potassium CL 10 MEQ/50 ML 50 ML IVPB SCH (08:00)
[2017-08-22] MEDS ORDERED: Multivitamin (MVI) 10 ML, Folic Acid 1 MG, Thiamine 100 MG in Dextrose 5%/0.45% NS 1,00... IV ONE (08:59)
[2017-08-22] MEDS ORDERED: Lactated Ringer's 500 ML IV ONE (13:27)
[2017-08-22] MEDS ORDERED: Propofol 10 mg/ml Inj (20 ML) ONE (14:11)
--- NOTE | 2017-08-22 17:26 | CP.CCUPN ---
CCU Subjective - Physician Review Subjective (Free Text): Under 1:1 supervision, mostly calm and cooperative with few episodes of mild agitation, trying to get OOB and requesting to be discharged. Finally calm enough to provide some contact information on family. No further active bleeding noted. Other VS and I/Os reviewed. ROS: No other pertinent negs or positives on 10+ system review. PMSFH: All other Nursing and physician documentation reviewed to date; no new pertinent info noted relevant to current medical problems. EXAM- HEENT: no icterus, no gaze preference, pupils equal and reactive NECK: No JVD, supple, carotids equal upstroke bilat/no bruits CHEST: decreased BS bases, no wheezes audible HEART: regular tachy, distant, S1S2, no rubs. ABD: soft, no distention, no tympany, no palp tenderness, BS hypoactive. EXT: No peripheral/ digital cyanosis, no calf tenderness or palpable cords, distal pulses intact and symmetrical. NEURO: no focal motor deficits, withdraws to deep pain. SKIN: no rashes, warm and dry. LABS: WBC= 11.8 HGB= 8.4 PLTs= 121K Es=638 K= 3.1 ME=982 HCO3= 23 BUN/Cr= 24/0.6 GP=807 IMPRESSION / MAJOR PROBLEMS NOW: 1. UGI Bleed, r/o ETOH Gastritis, vs Variceal hemorrhage 2. Acute blood loss anemia 2 #1 3. Delirium Tremans 2 ETOH Abuse 4. Hypokalemia PLAN: 1. EGD today noted: no active bleeding, +Variceal disease; started beta blockade by GI. 2. Hgb at satisfactory levels for now, hold on further transfusions. 3. Start Librium PO, Ativan IV PRN for breakthrough agitation. 4. Thiamine-Folate already started; K supplemented. CCU Objective - Vital Signs / Intake & Output Vital Signs (Last 4 hours): Vital Signs Temp Pulse Resp BP Pulse Ox 08/22/17 16:20 98.1 F 79 140/90 08/22/17 14:40 97.2 F L 92 H 15 125/84 100 08/22/17 14:25 97.2 F L 86 19 92/62 L 100 08/22/17 13:27 98.5 F 92 H 14 153/83 H 98 Intake and Output (Last 8hrs): Intake & Output 08/22/17 08/22/17 08/22/17 06:59 14:59 22:59 Intake Total 760 150 Output Total 650 Balance 110 150 Intake: IV 300 150 Intake, Piggyback 100 Oral 360 Output: Urine 650 Urine, Voided 650 Other: # Voids Urine, Voided 2
--- NOTE | 2017-08-22 21:44 | CP.PCM.PN ---
Subjective - Date & Time of Evaluation Date of Evaluation: 08/22/17 Time of Evaluation: 01:20 Objective - Vital Signs/Intake and Output Vital Signs (last 24 hours): Temp Pulse Resp BP Pulse Ox 98.1 F 90 15 125/75 100 08/22/17 16:20 08/22/17 20:35 08/22/17 20:00 08/22/17 20:35 08/22/17 20:00 Intake and Output: 08/22/17 08/23/17 18:59 06:59 Intake Total 150 Balance 150 - Medications Medications: Current Medications Carvedilol (Coreg) 3.125 mg PO Q12 [facility] Last Admin: 08/22/17 20:35 Dose: 3.125 mg Chlordiazepoxide (Librium) 25 mg PO Q6 [facility] Last Admin: 08/22/17 17:34 Dose: 25 mg Lactated Ringer's (Lactated Ringer's 500ml) 500 mls @ 75 mls/hr IV .Q6H40M ESTEBAN Lactulose (Enulose) 20 gm PO DAILY ESTEBAN Lorazepam (Ativan) 1 mg IVP Q4H PRN PRN Reason: Symptoms of alcohol withdrawl Last Admin: 08/22/17 20:36 Dose: 1 mg Nicotine (Nicoderm Cq) 1 patch TD DAILY ESTEBAN Pantoprazole Sodium (Protonix Ec Tab) 40 mg PO ACB ESTEBAN - Labs Labs: 08/22/17 05:00 08/22/17 05:00 PT 15.0 Seconds (9.8-13.1) H 08/22/17 05:00 INR 1.3 (0.9-1.2) H 08/22/17 05:00 APTT 30.1 Seconds (25.6-37.1) 08/21/17 06:20
[2017-08-22] MEDS: Lactated Ringer's 500 ML IV SCH (21:51)
[2017-08-23] MEDS: Lactated Ringer's 500 ML IV SCH (04:25)
[2017-08-23 06:09] LABS: BASO # 0.1 K/uL (0.0-0.2); BASO % 0.6 % (0.0-2.0); EOS # 0.4 K/uL (0.0-0.7); HEMOGLOBIN 7.8 g/dL (12.0-18.0); LYMPH # 2.6 K/uL (1.0-4.3); LYMPH % 30.7 % (20.0-40.0); MEAN CELL VOLUME 91.7 fl (80.0-94.0); MEAN CORPUSCULAR HEMOGLOBIN 31.3 pg (27.0-31.0); MEAN CORPUSCULAR HGB CONC 34.1 g/dL (33.0-37.0); MEAN PLATELET VOLUME 9.6 fl (7.2-11.7); MONO # 0.9 K/uL (0.0-0.8); MONO % 10.3 % (0.0-10.0); NEUT # 4.6 K/uL (1.8-7.0); NEUT % 53.4 % (50.0-75.0); NRBC % 0.2 % (0.0-0.0); RBC 2.48 Mil/uL (4.40-5.90); RED CELL DISTRIBUTION WIDTH 16.7 % (11.5-14.5); WHITE BLOOD COUNT 8.6 K/uL (4.8-10.8)
[2017-08-23 06:21] LABS: INR 1.3 (0.9-1.2); PROTHROMBIN TIME 14.8 Seconds (9.8-13.1)
[2017-08-23 06:32] LABS: ALB/GLOB RATIO 0.8 (1.0-2.1); ALBUMIN 2.5 g/dL (3.5-5.0); ALT/SGPT 73 U/L (21-72); AST/SGOT 111 U/L (17-59); BLOOD UREA NITROGEN 18 mg/dl (9-20); CALCIUM 7.7 mg/dL (8.4-10.2); GFR AFRICAN-AMERICAN > 60; GFR NON-AFRICAN AMERICAN > 60
[2017-08-23] MEDS: Pantoprazole 40 mg EC Tab PO SCH (06:37)
--- NOTE | 2017-08-23 08:45 | CP.CCUPN ---
CCU Subjective - Physician Review Subjective (Free Text): Under 1:1 supervision, mostly calm and cooperative with few episodes of mild agitation, trying to get OOB, but manageable for now. Not tremulous, no fever spikes, no diaphoresis, still able to respond appropriately. HR 77, on BBs. Other VS and I/Os reviewed. ROS: No other pertinent negs or positives on 10+ system review. PMSFH: All other Nursing and physician documentation reviewed to date; no new pertinent info noted relevant to current medical problems. EXAM- HEENT: no icterus, no gaze preference, pupils equal and reactive NECK: No JVD, supple, carotids equal upstroke bilat/no bruits CHEST: decreased BS bases, no wheezes audible HEART: regular non-tachy, distant, S1S2, no rubs. ABD: soft, no distention, no tympany, no palp tenderness, BS hypoactive. EXT: No peripheral/ digital cyanosis, no calf tenderness or palpable cords, distal pulses intact and symmetrical. NEURO: no focal motor deficits SKIN: no rashes, warm and dry. LABS: WBC= 8.6 HGB= 7.8 PLTs= 118K INR= 1.3 T Bili= 1.9 NH3= 47 Za=109 K= 3.1 EL=152 HCO3= 21 BUN/Cr= 18/0.6 KB=694 IMPRESSION / MAJOR PROBLEMS NOW: 1. UGI Bleed, r/o ETOH Gastritis, vs Variceal hemorrhage 2. Acute blood loss anemia 2 #1 3. Delirium Tremans 2 ETOH Abuse 4. Hypokalemia PLAN: 1. PO Librium started. 2. PO liquids as per GI, also on Coreg. 3. Will repeat CBC later, hold on further transfusion now unless active bleeding noted. 4. PPi 5. Bilirubin improving with hydration, additional K added to IVFs. CCU Objective - Vital Signs / Intake & Output Vital Signs (Last 4 hours): Vital Signs Temp Pulse Resp BP Pulse Ox 08/23/17 08:00 98.4 F 77 21 132/99 H 95 08/23/17 06:00 97.9 F 81 16 106/66 96 Intake and Output (Last 8hrs): Intake & Output 08/22/17 08/23/17 08/23/17 22:59 06:59 14:59 Intake Total 420 1055 0 Output Total 200 500 Balance 220 555 0 Intake: IV 300 800 Oral 120 255 0 Output: Urine 200 500 Urine, Voided 200 500
[2017-08-23] MEDS: Potassium Ch 20mEq in D5-1/2NS 1,000 ML IV SCH ×2 (09:46→16:39)
[2017-08-23 13:06] LABS: BASO # 0.1 K/uL (0.0-0.2); EOS # 0.5 K/uL (0.0-0.7); EOS % 5.6 % (0.0-4.0); HEMOGLOBIN 8.2 g/dL (12.0-18.0); LYMPH # 2.4 K/uL (1.0-4.3); MEAN CELL VOLUME 91.5 fl (80.0-94.0); MEAN CORPUSCULAR HEMOGLOBIN 31.2 pg (27.0-31.0); MEAN CORPUSCULAR HGB CONC 34.1 g/dL (33.0-37.0); MEAN PLATELET VOLUME 9.2 fl (7.2-11.7); MONO # 0.9 K/uL (0.0-0.8); MONO % 10.6 % (0.0-10.0); NEUT # 4.4 K/uL (1.8-7.0); NEUT % 53.8 % (50.0-75.0); NRBC % 0.1 % (0.0-0.0); RBC 2.63 Mil/uL (4.40-5.90); RED CELL DISTRIBUTION WIDTH 16.6 % (11.5-14.5); WHITE BLOOD COUNT 8.1 K/uL (4.8-10.8)
--- NOTE | 2017-08-23 22:43 | CP.PCM.PN ---
Subjective - Date & Time of Evaluation Date of Evaluation: 08/23/17 Time of Evaluation: 13:45 Objective - Vital Signs/Intake and Output Vital Signs (last 24 hours): Temp Pulse Resp BP Pulse Ox 98.1 F 89 22 114/72 100 08/23/17 20:00 08/23/17 22:00 08/23/17 22:00 08/23/17 22:00 08/23/17 15:12 Intake and Output: 08/23/17 08/24/17 18:59 06:59 Intake Total 1860 495 Output Total 500 400 Balance 1360 95 - Medications Medications: Current Medications Carvedilol (Coreg) 3.125 mg PO Q12 [facility] Last Admin: 08/23/17 20:57 Dose: 3.125 mg Chlordiazepoxide (Librium) 25 mg PO Q6 [facility] Last Admin: 08/23/17 21:00 Dose: 25 mg Potassium Chloride/Dextrose/Sod Cl (Potassium Chl 20 Meq In D5-1/2ns) 1,000 mls @ 125 mls/hr IV .Q8H [facility] Stop: 08/24/17 07:09 Last Admin: 08/23/17 16:39 Dose: 125 mls/hr Lactulose (Enulose) 20 gm PO DAILY [facility] Last Admin: 08/23/17 09:41 Dose: 20 gm Lorazepam (Ativan) 1 mg IVP Q4H PRN PRN Reason: Symptoms of alcohol withdrawl Last Admin: 08/23/17 12:31 Dose: 1 mg Nicotine (Nicoderm Cq) 1 patch TD DAILY [facility] Last Admin: 08/23/17 09:39 Dose: 1 patch Pantoprazole Sodium (Protonix Ec Tab) 40 mg PO ACB [facility] Last Admin: 08/23/17 06:37 Dose: 40 mg - Labs Labs: 08/23/17 12:02 08/23/17 04:30 PT 14.8 Seconds (9.8-13.1) H 08/23/17 04:30 INR 1.3 (0.9-1.2) H 08/23/17 04:30 APTT 30.1 Seconds (25.6-37.1) 08/21/17 06:20
[2017-08-24] MEDS: Potassium Ch 20mEq in D5-1/2NS 1,000 ML IV SCH (00:06)
[2017-08-24 01:12] LABS: BARBITURATES, UR NEGATIVE (NEGATIVE); BENZODIAZEPINES, UR POSITIVE (NEGATIVE); OPIATES, UR NEGATIVE (NEGATIVE); PHENCYCLIDINE, UR NEGATIVE (NEGATIVE)
[2017-08-24 05:24] LABS: HEMOGLOBIN 7.9 g/dL (12.0-18.0); MEAN CELL VOLUME 91.9 fl (80.0-94.0); MEAN CORPUSCULAR HEMOGLOBIN 31.3 pg (27.0-31.0); MEAN CORPUSCULAR HGB CONC 34.1 g/dL (33.0-37.0); RBC 2.51 Mil/uL (4.40-5.90); RED CELL DISTRIBUTION WIDTH 16.4 % (11.5-14.5); WHITE BLOOD COUNT 7.7 K/uL (4.8-10.8)
[2017-08-24 05:57] LABS: ALB/GLOB RATIO 0.8 (1.0-2.1); ALBUMIN 2.5 g/dL (3.5-5.0); ALT/SGPT 77 U/L (21-72); AST/SGOT 91 U/L (17-59); BLOOD UREA NITROGEN 10 mg/dl (9-20); CALCIUM 7.9 mg/dL (8.4-10.2); GFR AFRICAN-AMERICAN > 60; GFR NON-AFRICAN AMERICAN > 60
[2017-08-24] MEDS: Pantoprazole 40 mg EC Tab PO SCH (06:41)
--- NOTE | 2017-08-24 07:36 | CP.CCUPN ---
CCU Subjective - Physician Review Subjective (Free Text): Under 1:1 supervision, sleeps most of the day, but easily arousable, overall in a poorly cooperative mood. HR 73, on BBs. Other VS and I/Os reviewed. ROS: No other pertinent negs or positives on 10+ system review. PMSFH: All other Nursing and physician documentation reviewed to date; no new pertinent info noted relevant to current medical problems. EXAM- HEENT: no icterus, no gaze preference, pupils equal and reactive NECK: No JVD, supple, carotids equal upstroke bilat/no bruits CHEST: decreased BS bases, no wheezes audible HEART: regular non-tachy, distant, S1S2, no rubs. ABD: soft, no distention, no tympany, no palp tenderness, BS hypoactive. EXT: No peripheral/ digital cyanosis, no calf tenderness or palpable cords, distal pulses intact and symmetrical. NEURO: no focal motor deficits SKIN: no rashes, warm and dry. LABS: WBC= 7.7 HGB= 7.9 PLTs= 124K INR= 1.3 T Bili= 1.4, AST and ALT decreasing below 100. Ku=301 K= 3.2 LL=451 HCO3= 21 BUN/Cr= 10/0.6 BS=99 IMPRESSION / MAJOR PROBLEMS NOW: 1. UGI Bleed, r/o ETOH Gastritis, vs Variceal hemorrhage 2. Acute blood loss anemia 2 #1 3. Delirium Tremans 2 ETOH Abuse 4. Hypokalemia PLAN: 1. PO Librium started. 2. Advance diet, has been on PO liquids as per GI, also on Coreg. 3. Hold on further transfusion now unless active bleeding noted. 4. PPi 5. Bilirubin improving with hydration, additional K added to IVFs. Give supplemental K PO today, check Mag / Phos. CCU Objective - Vital Signs / Intake & Output Vital Signs (Last 4 hours): Vital Signs Temp Pulse Resp BP Pulse Ox 08/24/17 06:00 73 18 115/73 97 08/24/17 04:00 98.3 F 75 16 109/44 L 99 Intake and Output (Last 8hrs): Intake & Output 08/23/17 08/24/17 08/24/17 22:59 06:59 14:59 Intake Total 2115 1125 Output Total 900 850 Balance 1215 275 Intake: IV 1875 1000 Oral 240 125 Output: Urine 900 850 Urine, Voided 900 850
[2017-08-24] MEDS ORDERED: Potassium Chloride 20 mEq/15 ml LIQ UD PO ONE ×2 (07:38→12:00)
--- NOTE | 2017-08-24 12:26 | CARD ---
APPROVED REPORT EKG Measurement Heart [id number] <Conclusion> Sinus tachycardia Possible Left atrial enlargement Nonspecific ST abnormality Prolonged QT Abnormal ECG
--- NOTE | 2017-08-24 14:21 | CP.PCM.PN ---
Subjective - Date & Time of Evaluation Date of Evaluation: 08/24/17 Time of Evaluation: 13:30 - Subjective Subjective: PGY5 GI Fellow Progress Note Patient seen and examined bedside this afternoon. The patient is feeling well and is much more alert today. He denies any complaints. No further episodes of rectal bleeding noted. 12 system ROS performed and negative except where stated. Objective - Vital Signs/Intake and Output Vital Signs (last 24 hours): Temp Pulse Resp BP Pulse Ox 97.8 F 85 17 119/72 97 08/24/17 08:00 08/24/17 10:00 08/24/17 10:00 08/24/17 10:00 08/24/17 10:00 Intake and Output: 08/24/17 08/24/17 06:59 18:59 Intake Total 1620 120 Output Total 1250 300 Balance 370 -180 - Medications Medications: Current Medications Carvedilol (Coreg) 3.125 mg PO Q12 [facility] Last Admin: 08/24/17 08:19 Dose: 3.125 mg Chlordiazepoxide (Librium) 25 mg PO Q6 [facility] Last Admin: 08/24/17 13:10 Dose: 25 mg Lactulose (Enulose) 20 gm PO DAILY [facility] Last Admin: 08/24/17 08:18 Dose: 20 gm Lorazepam (Ativan) 1 mg IVP Q4H PRN PRN Reason: Symptoms of alcohol withdrawl Last Admin: 08/24/17 00:02 Dose: 1 mg Nicotine (Nicoderm Cq) 1 patch TD DAILY [facility] Last Admin: 08/24/17 08:18 Dose: 1 patch Pantoprazole Sodium (Protonix Ec Tab) 40 mg PO ACB [facility] Last Admin: 08/24/17 06:41 Dose: 40 mg Rifaximin (Xifaxan) 550 mg PO BID [facility] PRN Reason: Protocol - Labs Labs: 08/24/17 04:30 08/24/17 04:30 PT 14.8 Seconds (9.8-13.1) H 08/23/17 04:30 INR 1.3 (0.9-1.2) H 08/23/17 04:30 APTT 30.1 Seconds (25.6-37.1) 08/21/17 06:20 - Constitutional Appears: Non-toxic, No Acute Distress - Eye Exam Eye Exam: EOMI, PERRL - ENT Exam ENT Exam: Mucous Membranes Moist - Respiratory Exam Respiratory Exam: Clear to Ausculation Bilateral. absent: Rales, Rhonchi, Wheezes - Cardiovascular Exam Cardiovascular Exam: RRR, +S1, +S2 - GI/Abdominal Exam GI & Abdominal Exam: Soft, Normal Bowel Sounds. absent: Distended, Firm, Guarding, Rigid, Tenderness, Organomegaly - Extremities Exam Extremities Exam: Normal Inspection. absent: Pedal Edema - Neurological Exam Neurological Exam: Alert, Awake, Oriented x3 - Psychiatric Exam Psychiatric exam: Normal Affect, Normal Mood - Skin Skin Exam: Dry, Warm Assessment and Plan - Assessment and Plan (Free Text) Assessment: Patient is a 31yo male with PMHx significant for HTN who presented to the ED with complaint of nausea, vomiting and dark stool for one day. -Decompensated EtOH cirrhosis c/b esophageal varices, hepatic encephalopathy -Acute blood loss anemia -EtOH abuse/withdrawal Plan: -No further episodes of blood loss -Would avoid overtransfusion in cirrhotic patient with portal HTN - goal HGB 7-8 -Continue coreg 3.125mg PO BID, consider increasing to 6.25mg po BID and titrate to goal HR 60-65 -Lactulose 20g PO QD, titrate to 2-3 BM/day -Start Xifaxin 550mg PO BID -EtOH cessation encouraged -Will require outpatient follow up for chronic liver disease management and esophageal variceal ligation *MELD-Na: 12
[2017-08-24] MEDS: Potassium Chloride 20 MEQ in Dextrose 5%/0.45% NS 1,000 ML IV SCH (22:26)
--- NOTE | 2017-08-24 23:31 | CP.PCM.PN ---
Subjective - Date & Time of Evaluation Date of Evaluation: 08/24/17 Time of Evaluation: 15:00 Objective - Vital Signs/Intake and Output Vital Signs (last 24 hours): Temp Pulse Resp BP Pulse Ox 98.5 F 110 H 12 143/90 98 08/24/17 20:00 08/24/17 22:20 08/24/17 22:00 08/24/17 22:20 08/24/17 22:00 Intake and Output: 08/24/17 08/25/17 18:59 06:59 Intake Total 1680 800 Output Total 900 1000 Balance 780 -200 - Medications Medications: Current Medications Carvedilol (Coreg) 3.125 mg PO Q12 [facility] Last Admin: 08/24/17 22:20 Dose: 3.125 mg Chlordiazepoxide (Librium) 25 mg PO Q6 [facility] Last Admin: 08/24/17 22:20 Dose: 25 mg Potassium Chloride 20 meq/ (Dextrose/Sodium Chloride) 1,010 mls @ 100 mls/hr IV .Q10H6M [facility] Stop: 08/25/17 21:57 Last Admin: 08/24/17 22:26 Dose: 100 mls/hr Lactulose (Enulose) 20 gm PO DAILY [facility] Last Admin: 08/24/17 08:18 Dose: 20 gm Lorazepam (Ativan) 1 mg IVP Q4H PRN PRN Reason: Symptoms of alcohol withdrawl Last Admin: 08/24/17 22:21 Dose: 1 mg Nicotine (Nicoderm Cq) 1 patch TD DAILY [facility] Last Admin: 08/24/17 08:18 Dose: 1 patch Pantoprazole Sodium (Protonix Ec Tab) 40 mg PO ACB [facility] Last Admin: 08/24/17 06:41 Dose: 40 mg Rifaximin (Xifaxan) 550 mg PO BID [facility] PRN Reason: Protocol Last Admin: 08/24/17 16:43 Dose: 550 mg - Labs Labs: 08/24/17 04:30 08/24/17 04:30 PT 14.8 Seconds (9.8-13.1) H 08/23/17 04:30 INR 1.3 (0.9-1.2) H 08/23/17 04:30 APTT 30.1 Seconds (25.6-37.1) 08/21/17 06:20
[2017-08-25 06:33] LABS: BLOOD UREA NITROGEN 7 mg/dl (9-20); CALCIUM 8.2 mg/dL (8.4-10.2); GFR AFRICAN-AMERICAN > 60; GFR NON-AFRICAN AMERICAN > 60
[2017-08-25] MEDS: Pantoprazole 40 mg EC Tab PO SCH (08:12)
--- NOTE | 2017-08-25 08:57 | CP.PCM.CON ---
History of Present Illness - History of Present Illness History of Present Illness: This is a 31 yr old male who [place] admitted for blood in stools and alcohol abuse and withdrawl and with low HGb of 6.7 and being treated medically and and on librium protocol and psych consult called for evaluation of competency as pt has been wanting to sign out and has been increasingly agitated.pt has longstanding history of Alcohol abuse and recently abusing cannabis and has not been in any treatment for the same and has developed GI bleed and oesophageal varices because of it and currently lives in [place] and work for a [employer] their [employer] and claims to be visiting [facility] where family lives and ckaimed to go to [place] to celebrate success in job and heavily drank alcohol and abused cannabis and pt fell as well in ER and has syncope and HgB dropped to 6.7 and pt is still short of breath and still shaking withdrawing from alcohol.pt does not have any insight regarding his low Hgb and ekectrolyte imbalance and alcohol withdrawl putting him high risk for seizure and refusing further treatment and wants to sign out. Past Patient History - Past Medical History & Family History Past Medical History?: Yes - Past Social History Alcohol: Social Drugs: Denies - CARDIAC Hx Hypertension: Yes - PULMONARY Hx Respiratory Disorders: No - NEUROLOGICAL Hx Neurological Disorder: No - HEENT Hx HEENT Problems: No - RENAL Hx Chronic Kidney Disease: No - ENDOCRINE/METABOLIC Hx Endocrine Disorders: No - HEMATOLOGICAL/ONCOLOGICAL Hx Blood Disorders: No Hx AIDS: No Hx Human Immunodeficiency Virus (HIV): No - INTEGUMENTARY Hx Dermatological Problems: No - MUSCULOSKELETAL/RHEUMATOLOGICAL Hx Musculoskeletal Disorders: No Hx Falls: Yes (pt fell in the er) - GENITOURINARY/GYNECOLOGICAL Hx Genitourinary Disorders: No - PSYCHIATRIC Hx Psychophysiologic Disorder: No Hx Substance Use: No - ANESTHESIA Hx Anesthesia: No Meds Allergies/Adverse Reactions: Allergies Allergy/AdvReac Type Severity Reaction Status Date / Time Sulfa (Sulfonamide Allergy Mild RASH Verified 08/22/17 12:57 Antibiotics) - Medications Medications: Current Medications Carvedilol (Coreg) 3.125 mg PO Q12 [facility] Last Admin: 08/25/17 08:11 Dose: 3.125 mg Chlordiazepoxide (Librium) 25 mg PO Q6 [facility] Last Admin: 08/25/17 06:00 Dose: 25 mg Potassium Chloride 20 meq/ (Dextrose/Sodium Chloride) 1,010 mls @ 100 mls/hr IV .Q10H6M [facility] Stop: 08/25/17 21:57 Last Admin: 08/24/17 22:26 Dose: 100 mls/hr Lactulose (Enulose) 20 gm PO DAILY [facility] Last Admin: 08/25/17 08:11 Dose: 20 gm Lorazepam (Ativan) 1 mg IVP Q4H PRN PRN Reason: Symptoms of alcohol withdrawl Last Admin: 08/24/17 22:21 Dose: 1 mg Nicotine (Nicoderm Cq) 1 patch TD DAILY [facility] Last Admin: 08/25/17 08:12 Dose: 1 patch Pantoprazole Sodium (Protonix Ec Tab) 40 mg PO ACB [facility] Last Admin: 08/25/17 08:12 Dose: 40 mg Rifaximin (Xifaxan) 550 mg PO BID [facility] PRN Reason: Protocol Last Admin: 08/25/17 08:12 Dose: 550 mg Physical Exam - Constitutional Appears: In Acute Distress, Agitated, Confused - Psychiatric Exam Psychiatric exam: Agitated, Anxious Additional comments: Pt is alert oriented but having trouble in recalling the events and very foggy in his thinking and very paranoid as well . " i dont believe what you say" as he does not believe what i am telling about his low HH and abnormal labs and risk of GI bleedinh and him medically unsafe and at high risk for further complication including seizures,cardiac arrhthmias and circulatory shock from low HH and he has no insight about his and putting his life at risk by wanting to sign out AMA and his insight and judgement are serously impaired putting himself at high risk and need further stay in hospital . Results - Vital Signs Recent Vital Signs: Last Vital Signs Temp 97.8 F 08/25/17 08:00 Pulse 102 H 08/25/17 08:11 Resp 14 08/25/17 08:00 BP 113/64 08/25/17 08:11 Pulse Ox 98 08/25/17 08:00 - Labs Result Diagrams: 08/25/17 08:50 08/25/17 04:45 Labs: Laboratory Results - last 24 hr 08/20/17 08/25/17 15:40 04:45 Sodium 140 Potassium 3.5 L Chloride 109 H Carbon Dioxide 20 L Anion Gap 15 BUN 7 L Creatinine 0.6 L Est GFR ( Amer) > 60 Est GFR (Non-Af Amer) > 60 Random Glucose 97 Calcium 8.2 L Crossmatch See Detail Assessment & Plan - Assessment and Plan (Free Text) Assessment: Alcohol abuse and withdrawl neurocognitive disorder with paranoea anc agitated related to alcohol withdrawl and severe anemia Adjustment disorder with anxiety Plan: In my opinion because of seriously impaired insight and jusgement pt is not competent to sign himself out and need to stay inpt further for medical stabilization and continue 1:1 observation and prn meds and librium proticol and once pt is medically stabilized will be reevaluated for competency. Pt will benefit fron alcohol and drug inpt rehab when medically cleared for d/c
[2017-08-25 09:00] LABS: MEAN CELL VOLUME 92.7 fl (80.0-94.0); MEAN CORPUSCULAR HEMOGLOBIN 30.8 pg (27.0-31.0); MEAN CORPUSCULAR HGB CONC 33.3 g/dL (33.0-37.0); RBC 2.92 Mil/uL (4.40-5.90); RED CELL DISTRIBUTION WIDTH 16.4 % (11.5-14.5); WHITE BLOOD COUNT 7.6 K/uL (4.8-10.8)
[2017-08-25] MEDS: Potassium Chloride 20 MEQ in Dextrose 5%/0.45% NS 1,000 ML IV SCH (10:44)
[2017-08-25 12:04] VITALS: O2SAT 100
--- NOTE | 2017-08-25 15:27 | CP.PCM.PN ---
Subjective - Date & Time of Evaluation Date of Evaluation: 08/25/17 Time of Evaluation: 14:45 - Subjective Subjective: Seen and examined at the bed side. Patient refused to sit and be checked but rather wants to go home. The Psychiatrist evaluated the patient and stated that the patient has Poor insight and Judgment. I have told the patient cannot sign out AMA, and he insisted in tallking the Psychiatrist which I have helped him do. After d/w the Psychiatrist, and given patient is on high dose of Ativan 2mg IV Q4hrs for Acute Alcohol Withdrawal, and will not be allowed to sign out AMA due to lack of Capacity to make a sound decision. Patient attempted to Walk out of the facility but was brought back by security after Inna Barnes was called. Patient to be reevaluated tomorrow by the Psychiatrist for Capacity. No more active GI bleed as no Hematemesis or Melena, and H/H has improved by more than 1gm/dl. Objective - Vital Signs/Intake and Output Vital Signs (last 24 hours): Temp Pulse Resp BP Pulse Ox 98.3 F 94 H 18 132/80 100 08/25/17 10:00 08/25/17 10:00 08/25/17 10:00 08/25/17 10:00 08/25/17 10:00 Intake and Output: 08/25/17 08/25/17 06:59 18:59 Intake Total 1600 200 Output Total 1700 Balance -100 200 - Medications Medications: Current Medications Carvedilol (Coreg) 3.125 mg PO Q12 [facility] Last Admin: 08/25/17 08:11 Dose: 3.125 mg Chlordiazepoxide (Librium) 25 mg PO Q6 [facility] Last Admin: 08/25/17 09:05 Dose: 25 mg Potassium Chloride 20 meq/ (Dextrose/Sodium Chloride) 1,010 mls @ 100 mls/hr IV .Q10H6M [facility] Stop: 08/25/17 21:57 Last Admin: 08/25/17 10:44 Dose: Not Given Lactulose (Enulose) 20 gm PO DAILY [facility] Last Admin: 08/25/17 08:11 Dose: 20 gm Lorazepam (Ativan) 1 mg IVP Q4H PRN PRN Reason: Symptoms of alcohol withdrawl Last Admin: 08/25/17 09:23 Dose: 1 mg Nicotine (Nicoderm Cq) 1 patch TD DAILY [facility] Last Admin: 08/25/17 08:12 Dose: 1 patch Pantoprazole Sodium (Protonix Ec Tab) 40 mg PO ACB [facility] Last Admin: 08/25/17 08:12 Dose: 40 mg Rifaximin (Xifaxan) 550 mg PO BID [facility] PRN Reason: Protocol Last Admin: 08/25/17 08:12 Dose: 550 mg - Labs Labs: 08/25/17 08:50 08/25/17 04:45 PT 14.8 Seconds (9.8-13.1) H 08/23/17 04:30 INR 1.3 (0.9-1.2) H 08/23/17 04:30 APTT 30.1 Seconds (25.6-37.1) 08/21/17 06:20 - Constitutional Appears: No Acute Distress, Agitated, Confused - Head Exam Head Exam: ATRAUMATIC, NORMAL INSPECTION, NORMOCEPHALIC - Eye Exam Eye Exam: EOMI, Normal appearance Pupil Exam: PERRL - ENT Exam ENT Exam: Mucous Membranes Moist - Respiratory Exam Respiratory Exam: Clear to Ausculation Bilateral, NORMAL BREATHING PATTERN - Cardiovascular Exam Cardiovascular Exam: Tachycardia, +S1, +S2 - GI/Abdominal Exam GI & Abdominal Exam: Soft, Normal Bowel Sounds - Extremities Exam Extremities Exam: Full ROM, Normal Capillary Refill, Normal Inspection Additional comments: Shaky and poor Judgment and Insight. - Neurological Exam Neurological Exam: Alert, Awake, CN II-XII Intact, Oriented x3 - Psychiatric Exam Psychiatric exam: Agitated - Skin Skin Exam: Dry, Intact, Normal Color, Warm Assessment and Plan (1) Acute GI bleeding Assessment & Plan: S/P EGD, Multiple Large Varices- No active bleeding Syncope and Hypotension-Resolved Severe Anemia S/P Transfusion of 6 Units of PRBCs; H/H - Improving Alcoholic Cirrhosis with Portal Hypertension Continue to Monitor for active Bleed Clinically and CBC Continue Pantoprazole Add Propranolol GI Onboard Counselled in detail about quitting ETOH, and will Enroll in a program Status: Acute (2) Alcohol withdrawal Assessment & Plan: Agitation and Confusion Start Taper Ativan Thiamine and Folic Acid Psychiatrist Consulted for Capacity Determination Status: Acute
[2017-08-25] MEDS: Potassium Chloride 20 mEq ER Tab PO SCH (17:27)
[2017-08-26 08:32] VITALS: RESP 18
[2017-08-26] MEDS: Pantoprazole 40 mg EC Tab PO SCH (09:46)
[2017-08-26] MEDS: Potassium Chloride 20 mEq ER Tab PO SCH (09:46)
[2017-08-26 12:42] VITALS: BP 134/72; PULSE 96; TEMP 98.2
--- NOTE | 2017-08-26 16:04 | CP.PCM.CON ---
History of Present Illness - History of Present Illness History of Present Illness: Pt seen today for psychiatry follow up consult and improved significantly medically and his insight regarding his alcohol abuse and medical complications of alcohol abuse has also improved.pt is willing to stay in unit till he is medically stable and his Hb is 9 which is sade as oer dr sanders for d/c and he is currently not withdrawing from alcohol and vitals are normal 132/72,96, 98degreef and as per dr sanders pt is medically cleared for d/c .pt is agreeable to follow up with alcohol rehab program and denies any suicidal ideation.no agitation and family is very supportive as pt has plans to live with mother for a month and than go to [facility] and also has a friend who is a ANP who will help him get into alcohol rehab over there. Past Patient History - Past Medical History & Family History Past Medical History?: Yes - Past Social History Alcohol: Social Drugs: Denies - CARDIAC Hx Hypertension: Yes - PULMONARY Hx Respiratory Disorders: No - NEUROLOGICAL Hx Neurological Disorder: No - HEENT Hx HEENT Problems: No - RENAL Hx Chronic Kidney Disease: No - ENDOCRINE/METABOLIC Hx Endocrine Disorders: No - HEMATOLOGICAL/ONCOLOGICAL Hx Blood Disorders: No Hx AIDS: No Hx Human Immunodeficiency Virus (HIV): No - INTEGUMENTARY Hx Dermatological Problems: No - MUSCULOSKELETAL/RHEUMATOLOGICAL Hx Musculoskeletal Disorders: No Hx Falls: Yes (pt fell in the er) - GENITOURINARY/GYNECOLOGICAL Hx Genitourinary Disorders: No - PSYCHIATRIC Hx Psychophysiologic Disorder: No Hx Substance Use: No - ANESTHESIA Hx Anesthesia: No Meds Home Medications: Home Medication List Medication Instructions Recorded Confirmed Type busPIRone [Buspar] 10 mg PO BID #60 tab 08/26/17 Rx Allergies/Adverse Reactions: Allergies Allergy/AdvReac Type Severity Reaction Status Date / Time Sulfa (Sulfonamide Allergy Mild RASH Verified 08/22/17 12:57 Antibiotics) - Medications Medications: Current Medications Buspirone HCl (Buspar) 10 mg PO BID [facility] Carvedilol (Coreg) 3.125 mg PO Q12 [facility] Last Admin: 08/26/17 09:46 Dose: 3.125 mg Chlordiazepoxide (Librium) 25 mg PO Q6 [facility] Last Admin: 08/26/17 09:49 Dose: 25 mg Lactulose (Enulose) 20 gm PO DAILY [facility] Last Admin: 08/26/17 09:47 Dose: Not Given Lorazepam (Ativan) 1 mg PO TID PRN PRN Reason: Agitation Last Admin: 08/26/17 14:58 Dose: 1 mg Nicotine (Nicoderm Cq) 1 patch TD DAILY [facility] Last Admin: 08/26/17 09:47 Dose: 1 patch Pantoprazole Sodium (Protonix Ec Tab) 40 mg PO ACB [facility] Last Admin: 08/26/17 09:46 Dose: 40 mg Potassium Chloride (K-Dur 20 Meq Er Tab) 20 meq PO DAILY [facility] Last Admin: 08/26/17 09:46 Dose: 20 meq Rifaximin (Xifaxan) 550 mg PO BID [facility] PRN Reason: Protocol Last Admin: 08/26/17 09:47 Dose: Not Given Physical Exam - Psychiatric Exam Psychiatric exam: Normal Affect, Normal Mood Additional comments: pt is alert oriented x3 with intact memory and fair concentration.pt has mildly anxious mood and appropriate affect and denies A/v hallucinations and denies suicidal ideation and denies homicidal ideation and has fair insight and fair judgement.pt is competent at this time. Results - Vital Signs Recent Vital Signs: Last Vital Signs Temp 98.2 F 08/26/17 12:41 Pulse 96 H 08/26/17 12:41 Resp 18 08/26/17 12:41 BP 134/72 08/26/17 12:41 Pulse Ox 100 08/26/17 12:41 - Labs Result Diagrams: 08/25/17 08:50 08/25/17 04:45 Labs: Laboratory Results - last 24 hr 08/22/17 15:45 Crossmatch See Detail Assessment & Plan - Assessment and Plan (Free Text) Assessment: Alcohol abuse and dependence adjustment disorder with anxiety Plan: Pt has agreed to start buspar 10 mg bid for anxiety and to decrease cravings for alcohol and pt has been offered inpt drug and alcohol rehab and pt does not want to do it now but agreeable to go to [facility] and alcohol anonym[facility] meetings and provided with phone numbers for [facility] and [facility] program and pt wis confidemt to follow up and stop drinking.family is agreeable and pt agreeable to d/c plan and pt is competent to make decision for his medical care and psychiatrically cleared for d/c to family.
--- NOTE | 2017-08-26 16:45 | CP.PCM.DIS ---
Provider - Provider Date of Admission: 08/20/17 17:17 Attending physician: Dharmesh Rubalcava MD Time Spent in preparation of Discharge (in minutes): 35 Diagnosis - Discharge Diagnosis (1) Acute GI bleeding Status: Acute (2) Alcohol withdrawal Status: Acute Hospital Course - Lab Results Lab Results: Micro Results 08/20/17 06:40 Nose MRSA Culture (Admit) - Final MRSA NOT DETECTED Most Recent Lab Values WBC 7.6 K/uL (4.8-10.8) 08/25/17 08:50 RBC 2.92 Mil/uL (4.40-5.90) L 08/25/17 08:50 Hgb 9.0 g/dL (12.0-18.0) L 08/25/17 08:50 Hct 27.0 % (35.0-51.0) L 08/25/17 08:50 MCV 92.7 fl (80.0-94.0) 08/25/17 08:50 MCH 30.8 pg (27.0-31.0) 08/25/17 08:50 MCHC 33.3 g/dL (33.0-37.0) 08/25/17 08:50 RDW 16.4 % (11.5-14.5) H 08/25/17 08:50 Plt Count 140 K/uL (130-400) 08/25/17 08:50 MPV 9.2 fl (7.2-11.7) 08/23/17 12:02 Neut % (Auto) 53.8 % (50.0-75.0) 08/23/17 12:02 Lymph % (Auto) 29.0 % (20.0-40.0) 08/23/17 12:02 [place] % (Auto) 10.6 % (0.0-10.0) H 08/23/17 12:02 Eos % (Auto) 5.6 % (0.0-4.0) H 08/23/17 12:02 Baso % (Auto) 1.0 % (0.0-2.0) 08/23/17 12:02 Neut # (Auto) 4.4 K/uL (1.8-7.0) 08/23/17 12:02 Lymph # (Auto) 2.4 K/uL (1.0-4.3) 08/23/17 12:02 [place] # (Auto) 0.9 K/uL (0.0-0.8) H 08/23/17 12:02 Eos # (Auto) 0.5 K/uL (0.0-0.7) 08/23/17 12:02 Baso # (Auto) 0.1 K/uL (0.0-0.2) 08/23/17 12:02 PT 14.8 Seconds (9.8-13.1) H 08/23/17 04:30 INR 1.3 (0.9-1.2) H 08/23/17 04:30 APTT 30.1 Seconds (25.6-37.1) 08/21/17 06:20 Sodium 140 mmol/l (132-148) 08/25/17 04:45 Potassium 3.5 MMOL/L (3.6-5.0) L 08/25/17 04:45 Chloride 109 mmol/L (98-107) H 08/25/17 04:45 Carbon Dioxide 20 mmol/L (22-30) L 08/25/17 04:45 Anion Gap 15 (10-20) 08/25/17 04:45 BUN 7 mg/dl (9-20) L 08/25/17 04:45 Creatinine 0.6 mg/dl (0.8-1.5) L 08/25/17 04:45 Est GFR ( Amer) > 60 08/25/17 04:45 Est GFR (Non-Af Amer) > 60 08/25/17 04:45 POC Glucose (mg/dL) 250 mg/dL (65-110) H 08/20/17 15:14 Random Glucose 97 mg/dL (75-110) 08/25/17 04:45 Calcium 8.2 mg/dL (8.4-10.2) L 08/25/17 04:45 Phosphorus 3.6 mg/dl (2.5-4.5) 08/20/17 15:40 Magnesium 1.9 MG/DL (1.6-2.3) 08/21/17 06:20 Total Bilirubin 1.4 mg/dl (0.2-1.3) H 08/24/17 04:30 AST 91 U/L (17-59) H 08/24/17 04:30 ALT 77 U/L (21-72) H 08/24/17 04:30 Alkaline Phosphatase 67 U/L (38-126) 08/24/17 04:30 Ammonia 47 umo/L (16-60) 08/22/17 15:45 Troponin I < 0.0120 ng/mL (0.00-0.120) 08/20/17 15:40 Total Protein 5.7 G/DL (6.3-8.2) L 08/24/17 04:30 Albumin 2.5 g/dL (3.5-5.0) L 08/24/17 04:30 Globulin 3.2 gm/dL (2.2-3.9) 08/24/17 04:30 Albumin/Globulin Ratio 0.8 (1.0-2.1) L 08/24/17 04:30 Alpha Fetoprotein 2.5 IU/mL (0.0-7.22) 08/22/17 15:45 Urine Opiates Screen Negative (NEGATIVE) 08/24/17 00:42 Urine Methadone Screen Negative (NEGATIVE) 08/24/17 00:42 Ur Barbiturates Screen Negative (NEGATIVE) 08/24/17 00:42 Ur Phencyclidine Scrn Negative (NEGATIVE) 08/24/17 00:42 Ur Amphetamines Screen Negative (NEGATIVE) 08/24/17 00:42 U Benzodiazepines Scrn Positive (NEGATIVE) 08/24/17 00:42 U Oth Cocaine Metabols Negative (NEGATIVE) 08/24/17 00:42 U Cannabinoids Screen Positive (NEGATIVE) H 08/24/17 00:42 Alcohol, Quantitative < 10 mg/dl (0-10) 08/20/17 15:40 Hepatitis A IgM Ab Negative (NEGATIVE) 08/21/17 08:52 Hep Bs Antigen Negative (NEGATIVE) 08/21/17 08:52 Hep B Core IgM Ab Negative (NEGATIVE) 08/21/17 08:52 Hepatitis C Antibody Negative (NEGATIVE) 08/21/17 08:52 Blood Type B POSITIVE 08/22/17 15:45 Blood Type Confirm B POSITIVE 08/20/17 17:00 Antibody Screen Negative 08/22/17 15:45 Crossmatch See Detail 08/22/17 15:45 BBK History Checked Patient has bt 08/22/17 15:45 Discharge Exam - Head Exam Head Exam: ATRAUMATIC, NORMAL INSPECTION, NORMOCEPHALIC Discharge Plan - Discharge Medications Prescriptions: busPIRone [Buspar] 10 mg PO BID #60 tab Propranolol [Inderal LA] 80 mg PO Q8 #90 cap Pantoprazole [Protonix EC Tab] 40 mg PO ACB #30 ect - Follow Up Plan Condition: CRITICAL Disposition: HOME/ ROUTINE Instructions: Gastrointestinal Bleeding (DC)
== END 2017-08-26 17:05 | disposition home or self-care (01) | DRG 378 ==
LOC: H.ER 14:58 → H.ERHOLD 17:17 → H.ICU/CCU 19:14 → H.TEL 08-25 09:45
PROVIDERS: ADMIT Internal Medicine; ATTEND Internal Medicine
PROC: 30233N1 Transfusion of Nonautologous Red Blood Cells into Peripheral Vein, Percutaneous Approach (ICD-10-PCS; 2017-08-20)
PROC: 0DB68ZX Excision of Stomach, Via Natural or Artificial Opening Endoscopic, Diagnostic (ICD-10-PCS; principal; 2017-08-22 13:30)
DX: K92.0 Hematemesis (principal); F10.231 Alcohol dependence with withdrawal delirium; D62 Acute posthemorrhagic anemia; K76.6 Portal hypertension; I85.10 Secondary esophageal varices without bleeding; K92.1 Melena; R41.9 Unspecified symptoms and signs involving cognitive functions and awareness; F43.22 Adjustment disorder with anxiety; F10.10 Alcohol abuse, uncomplicated; Y90.0 Blood alcohol level of less than 20 mg/100 ml; E87.6 Hypokalemia; Z88.2 Allergy status to sulfonamides; I10 Essential (primary) hypertension; F17.210 Nicotine dependence, cigarettes, uncomplicated; I78.1 Nevus, non-neoplastic; K31.89 Other diseases of stomach and duodenum; K70.30 Alcoholic cirrhosis of liver without ascites; K72.90 Hepatic failure, unspecified without coma